=== PATIENT | male | born 1955 | race Caucasian/White ===

== ENCOUNTER 2023-07-21 10:57 | Outpatient (OUT) | payer OTHER, SELFPAY ==
--- NOTE | 2023-07-21 11:20 | XR_ITS ---
The [address] [address] Patient Name: PRINCESS OROZCO MRN: [id number] date: 1955 Sex: M Assigned Patient Location: [facility] Current Patient Location: [facility] Accession/Order Number: [id number] Exam Date: 07/21/2023 11:10 Report Date: 07/21/2023 15:44 At the request of: DINORAH MARTIN Procedure: XR ankle LT min 3V PROCEDURE: XR ankle LT min 3V DATE: 07/21/2023 10:10 AM CDT COMPARISONS: None CLINICAL INDICATION: CHRONIC PAIN OF LEFT ANKLE M 25.572 FINDINGS: There is no evidence of fractures or other osseous abnormalities. The ankle mortise is intact. There is evidence of mild tibiotalar degenerative change. There is a small spur off the posterior inferior os calcis noted on lateral view. There is spurring off the posterior os calcis at the attachment of the Achilles. There is evidence of mid foot degenerative changes. XR/XR ankle LT min 3V IMPRESSION: Left ankle radiographs show no evidence of acute abnormalities. Electronically authenticated by: ALENA WEST Date: 07/21/2023 15:44
== END 2023-07-21 10:58 | disposition home or self-care (01) ==
LOC: RAD 10:57
PROVIDERS: PCP Family Medicine; Visit Provider Family Medicine
DX: M25.572 Pain in left ankle and joints of left foot (principal); Z91.81 History of falling; Z13.31 Encounter for screening for depression
CPT/HCPCS: 73610

== ENCOUNTER 2023-08-01 08:08 | Outpatient (OUT) | payer OTHER, SELFPAY ==
--- NOTE | 2023-08-01 08:24 | MR_ITS ---
[address] [address] Patient Name: PRINCESS OROZCO MRN: [id number] date: 1955 Sex: M Assigned Patient Location: MRI Current Patient Location: MRI Accession/Order Number: [id number] Exam Date: 08/01/2023 08:50 Report Date: 08/01/2023 16:52 At the request of: DINORAH MARTIN Procedure: MR ankle LT wo con HISTORY: Pain along the lateral aspect of the left ankle for the past 2 months. No known injury. MR ankle LT wo con: 08/01/2023 8:50 AM EDT COMPARISON: Radiographs left ankle 07/21/2023. TECHNIQUE: Multiplanar, multisequence MRI images of the ankle were obtained without contrast. FINDINGS: LIGAMENTS: The anterior talofibular ligament appears within normal limits. The calcaneofibular ligament, posterior talofibular ligament, and distal tibiofibular ligaments appear within normal limits. The deltoid ligament complex appears within normal limits. The superior peroneal retinaculum appears intact. TENDONS: There appears to be mild focal thickening and intermediate signal intensity involving the inframalleolar portion of the peroneus brevis tendon compatible with mild tendinopathy. No significant tendinopathy or tear of the peroneal tendons is seen. There is no significant tenosynovitis of the peroneal tendon sheath. There is a moderate amount of fluid within the posterior tibialis tendon sheath. There is evidence of severe tendinopathy of the retromalleolar and distal portion of the posterior tibialis tendon. Superimposed on this tendinopathy is a high-grade, longitudinal intrasubstance tear of the tendon extending from the retromalleolar region to its insertion. This tear measures 5 cm in length. There is mild diffuse thickening and low signal intensity of the Achilles tendon compatible with chronic diffuse tendinopathy. There appears to be moderate diffuse thickening and low signal intensity of the distal anterior tibialis tendon. The other tendons of the ankle appear within normal limits. SINUS TARSI AND TARSAL TUNNEL: There is edema-like signal replacing the majority of the fat within the sinus tarsi. No space-occupying mass is seen in the tarsal tunnel. BONES AND JOINTS: The bone marrow signal intensity is age appropriate. There appear to be mild to moderate degenerative changes of the talonavicular joint with dorsal osteophyte formation. There is a small 2 mm subchondral cyst within the posterolateral aspect of the tibial plafond. No osteochondral defect of the talar dome is seen. There appear to be mild degenerative changes of the talofibular joint and there is subchondral cystic change and bone marrow edema within the adjacent lateral malleolus. There appear to be mild degenerative changes of the medial aspect of the posterior subtalar joint. There is a moderate amount of bone marrow edema throughout the majority of the body and neck of the talus and also within the calcaneus adjacent to the posterior subtalar joint. There appear to be mild degenerative changes of the distal tibiofibular syndesmosis with marginal osteophytes. There is a small amount of fluid within a joint recess posterior to the posterior subtalar joint. There is a small 4 mm ovoid low signal intensity filling defect within this fluid on image 9 of the sagittal proton-density fat-saturated sequence compatible with a loose body. PLANTAR FASCIA: There is a large plantar calcaneal enthesophyte. There is evidence of moderate- severe plantar fasciitis involving the proximal central band of the plantar fascia in this region. SOFT TISSUES: No significant soft tissue swelling is seen. MR/MR ankle LT wo con IMPRESSION: 1. There is evidence of mild focal tendinopathy of the inframalleolar portion of the peroneus brevis tendon, but no tear of the peroneal tendons is seen and there is no significant tenosynovitis of the peroneal tendon sheath. 2. Severe tendinopathy and superimposed high-grade longitudinal partial-thickness intrasubstance tear of the posterior tibialis tendon with a moderate tenosynovitis. 3. There are mild degenerative changes of the medial aspect of the posterior subtalar joint with reactive bone marrow edema involving the adjacent body and neck of the talus and the calcaneus. Less likely this bone marrow edema could be secondary to bone contusions or stress reactions. There are also mild-moderate degenerative changes of the talonavicular joint and the talofibular joint with subchondral cystic change and bone marrow edema within the adjacent lateral malleolus. 4. There is edema-like signal replacing the fat within the sinus tarsi which is probably secondary to underlying inflammation or synovitis and this may be a potential cause for sinus tarsi syndrome. 5. Moderate-severe plantar fasciitis with a large plantar calcaneal enthesophyte. 6. No ligament injury is seen. Electronically authenticated by: MARITO JONES Date: 08/01/2023 16:52
== END 2023-08-01 08:09 | disposition home or self-care (01) ==
PROVIDERS: PCP Family Medicine; Visit Provider Family Medicine
DX: M25.572 Pain in left ankle and joints of left foot (principal); M67.874 Other specified disorders of tendon, left ankle and foot
CPT/HCPCS: 73721

== ENCOUNTER 2023-08-06 08:42 | Outpatient (OUT) | payer OTHER, SELFPAY ==
--- NOTE | 2023-08-06 | XR_ITS ---
The [address] [address] Patient Name: PRINCESS OROZCO MRN: [id number] date: 1955 Sex: M Assigned Patient Location: [facility] Current Patient Location: Accession/Order Number: [id number] Exam Date: 08/06/2023 08:50 Report Date: 08/07/2023 07:03 At the request of: LYNN MCCALL Procedure: XR ankle LT min 3V PROCEDURE: XR ankle LT min 3V, XR foot LT min 3V HISTORY: LEFT ANKLE PAIN COMPARISON: XR ankle left 07/21/2023 FINDINGS: BONES:Joint space narrowing and periarticular osteophytes involving the first metatarsophalangeal joints and first interphalangeal joint. No fracture or dislocation. Flattening of plantar arch. Prominent calcaneal degenerative enthesopathic spurring. Smooth articular surface and uniform spacing of the ankle joint. SOFT TISSUES:No visible soft tissue swelling. EFFUSION:None visible. OTHER: Negative. XR/XR ankle LT min 3V IMPRESSION: 1. No appreciable acute abnormality. 2. Unremarkable ankle joint. 3. Degenerative changes of the foot. Electronically authenticated by: PARTHA CHAMORRO Date: 08/07/2023 07:03
--- NOTE | 2023-08-06 | XR_ITS ---
The [address] [address] Patient Name: PRINCESS OROZCO MRN: [id number] date: 1955 Sex: M Assigned Patient Location: [facility] Current Patient Location: Accession/Order Number: [id number] Exam Date: 08/06/2023 08:50 Report Date: 08/07/2023 07:03 At the request of: LYNN MCCALL Procedure: XR foot LT min 3V PROCEDURE: XR ankle LT min 3V, XR foot LT min 3V HISTORY: LEFT ANKLE PAIN COMPARISON: XR ankle left 07/21/2023 FINDINGS: BONES:Joint space narrowing and periarticular osteophytes involving the first metatarsophalangeal joints and first interphalangeal joint. No fracture or dislocation. Flattening of plantar arch. Prominent calcaneal degenerative enthesopathic spurring. Smooth articular surface and uniform spacing of the ankle joint. SOFT TISSUES:No visible soft tissue swelling. EFFUSION:None visible. OTHER: Negative. XR/XR foot LT min 3V IMPRESSION: 1. No appreciable acute abnormality. 2. Unremarkable ankle joint. 3. Degenerative changes of the foot. Electronically authenticated by: PARTHA CHAMORRO Date: 08/07/2023 07:03
== END 2023-08-06 08:43 | disposition home or self-care (01) ==
LOC: RAD 08:42
PROVIDERS: PCP Family Medicine; Visit Provider Podiatrist Foot & Ankle Surgery
DX: M25.572 Pain in left ankle and joints of left foot (principal)
CPT/HCPCS: 73610; 73630

== ENCOUNTER 2024-08-18 08:04 | Outpatient (OUT) | payer OTHER, SELFPAY ==
--- OUTSIDE RECORDS SUMMARY | 2024-08-18 08:17 | XMS_ITS | CCD ---
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 Name Role Phone JenniferNoraCarissa Unavailable CARISSA ARROYO Admitting Unavailable CARISSA ARROYO Consulting Unavailable CARISSA ARROYO Attending Unavailable MARIO, DR DINORAH Ireland Consulting Unavailable MARIO, DR DINORAH Ireland Attending Unavailable MARIO, DR DINORAH Ireland Admitting Unavailable DR DINORAH MARTIN Primary Care Unavailable SHAIKH MENA Attending Unavailable Unallocated , Noms Provider Primary Care Provi aiden Allergies Allergy Classification Reported Allergen(s) Allergy Type Date of Onset Reaction(s) Facility (1 source) Penicillin G Benzathine Drug allergy anaphylaxis [facility] Acquis[facility] Other (2 sources) Penicillins Drug Intolerance 0 Rash [facility] Medications Current Medications Medication Drug Class(es) Dates Sig (Normalized) Sig (Original) clindamycin 300 mg oral capsule (1 source) Lincosamide Antibacterial Start: 07-29-2021 take 1 capsule by mouth every eight hours Clindamycin HCl 300 MG 1 cap(s) Orally tid for 10 day(s) Jul, Active nabumetone 500 mg oral tablet (2 sources) Nonsteroidal Anti-inflammatory Drug Start: 11-12-2023 take 1 tablet by mouth twice daily as needed for pain nabumetone (Relafen) 500 MG tablet Take 500 mg by mouth 2 (two) times a day as needed for moderate pain 11/12/2023 Active Problems Active Problems Problem Classification Problem Date Documented Date Episodic/Chronic Immunizations and screening for infectious disease (2 sources) Needs influenza immunization; Translations: [Encounter for immunization] Onset: 08-03-2024 08-03-2024 Episodic Osteoarthritis (2 sources) Osteoarthritis of left hip joint; Translations: [Unilateral primary osteoarthritis, left hip] Onset: 12-18-2023 12-18-2023 Chronic Other connective tissue disease (2 sources) History of repair of hip joint; Translations: [Presence of right artificial hip joint] Onset: 12-18-2023 12-18-2023 Chronic Other ear and sense organ disorders (1 source) Otitis externa; Translations: [Other otitis externa, left ear] Chronic Other nervous system disorders (2 sources) Chronic pain; Translations: [Other chronic pain] Onset: 12-18-2023 12-18-2023 Chronic Other nutritional; endocrine; and metabolic disorders (2 sources) Body mass index 30+ - obesity; Translations: [Obesity, unspecified] Onset: 12-18-2023 12-18-2023 Chronic Other screening for suspected conditions (not mental disorders or infectious disease) (3 sources) Encounter for screening for malignant neoplasm of prostate; Translations: [Patient encounter status] Onset: 06-03-2022 08-03-2024 Episodic Other upper respiratory disease (2 sources) Seasonal allergic rhinitis; Translations: [Other seasonal allergic rhinitis] Onset: 12-18-2023 12-18-2023 Chronic Past or Other Problems Problem Classification Problem Date Documented Da te Episodic/Chronic Abdominal hernia (2 sources) Bilateral inguinal hernia; Translations: [Bilateral inguinal hernia, without obstruction or gangrene, not specified as recurrent] Onset: 12-18-2023 12-18-2023 Episodic E Codes: Natural/environment (1 source) Bitten by dog, initial encounter; Translations: [Bitten by dog, initial encounter W54.0XXA] Onset: 07-29-2021 Resolved: 07-29-2021 Episodic Open wounds of extremities (1 source) Open bite of left forearm, initial encounter; Translations: [Open bite of left forearm, initial encounter S51.852A] Onset: 07-29-2021 Resolved: 07-29-2021 Episodic Other connective tissue disease (2 sources) Tear of left rotator cuff; Translations: [Unspecified rotator cuff tear or rupture of left shoulder, not specified as traumatic] Onset: 12-18-2023 12-18-2023 Episodic Other connective tissue disease (2 sources) Tear of right rotator cuff; Translations: [Unspecified rotator cuff tear or rupture of right shoulder, not specified as traumatic] Onset: 12-18-2023 12-18-2023 Episodic Other upper respiratory infections (2 sources) Acute upper respiratory infection; Translations: [Acute upper respiratory infection, unspecified] Onset: 12-18-2023 12-18-2023 Episodic Results Test Name Value Interpretation Reference Range Facil ity CBC W MANUAL DIFFon 05-30-20 22 ATYPICAL LYMPH # Normal [facility] Comment on above: Performed By: #### C BCMAN #### [facility] [address] [place] [address] Dr. Emely Steele ATYPICAL LYMPH % Normal [facility] Comment on above: Performed By: #### C BCMAN #### [facility] [address] [place] [address] Dr. Emely Steele BAND # Normal 0.0-0.3 [facility] Comment on above: Performed By: #### C BCMAN #### [facility] [address] [place] [address] Dr. Emely Steele BAND % Normal 0-5 [facility] Comment on above: Performed By: #### C BCMAN #### [facility] [address] [place] [address] Dr. Emely Steele BASOM # 0.00 103/ul Normal 0.00-0.10 [facility] Comment on above: Performed By: #### C BCMAN #### [facility] [address] [place] [address] Dr. Emely Steele BASOM % 0.0 % Critically low 0.2-2.0 [facility] Comment on above: Performed By: #### C BCMAN #### [facility] [address] [place] [address] Dr. Emely Steele BLAST # Normal [facility] Comment on above: Performed By: #### C BCMAN #### [facility] [address] [place] [address] Dr. Emely Steele BLAST % Normal [facility] Comment on above: Performed By: #### C BCMAN #### [facility] [address] [place] [address] Dr. Emely Steele CORRECTED WBC Normal 4.0-11.0 [facility] Comment on above: Performed By: #### C BCGEOVANI #### [facility] [address] [address] [address] Emely Steele EOS # 0.18 103/ul Normal 0.00-0.70 [facility] Comment on above: Performed By: #### C BCGEOVANI #### [facility] [address] [address] [address] Emely Steele EOS% 4.0 % Normal 0.9-7.0 [facility] Comment on above: Performed By: #### C NAYELI #### [facility] [address] [address] [address] Emely Steele HCT 42.7 % Normal 42.0-54.0 [facility] Comment on above: Performed By: #### C NAYELI #### [facility] [address] [place] [address] Dr. Emely Steele HGB 14.9 g/dl Normal 14.0-18.0 [facility] Comment on above: Performed By: #### C NAYELI #### [facility] [address] [place] [address] Dr. Emely Steele LYMPHM # 0.78 103/ul Critically low 1.20-3.80 [facility] Comment on above: Performed By: #### C NAYELI #### [facility] [address] [address] [address] Emely Steele LYMPHM% 17.0 % Critically low 20.5-60.0 [facility] Comment on above: Performed By: #### C NAYELI #### [facility] [address] [place] [address] Dr. Emely Steele MCH 33.6 pg Normal 25.9-34.0 [facility] Comment on above: Performed By: #### C NAYELI #### [facility] [address] [address] [address] Emely Steele MCHC 34.9 g/dl Normal 29.9-35.2 [facility] Comment on above: Performed By: #### C NAYELI #### [facility] [address] [place] [address] Dr. Emely Steele MCV 96.2 fL Critically high 80.0-94.0 [facility] Comment on above: Performed By: #### C NAYELI #### [facility] [address] [place] [address] Dr. Emely Steele METAMYELOCYTE # Normal [facility] Comment on above: Performed By: #### C NAYELI #### [facility] [address] [place] [address] Dr. Emely Steele METAMYELOCYTE % Normal [facility] Comment on above: Performed By: #### C NAYELI #### [facility] [address] [place] [address] Dr. Emely Steele MONOM# 0.55 103/ul Normal 0.30-0.80 [facility] Comment on above: Performed By: #### C NAYELI #### [facility] [address] [place] [address] Dr. Emely Steele MONOM% 12.0 % Normal 1.7-12.0 [facility] Comment on above: Performed By: #### C NAYELI #### [facility] [address] [place] [address] Dr. Emely Steele MPV 9.3 fL Critically low 9.5-13.5 [facility] Comment on above: Performed By: #### C NAYELI #### [facility] [address] [place] [address] Dr. Emely Steele MYELOCYTE # Normal [facility] Comment on above: Performed By: #### C NAYELI #### [facility] [address] [place] [address] Dr. Emely Steele MYELOCYTE % Normal [facility] Comment on above: Performed By: #### C NAYELI #### [facility] [address] [place] [address] Dr. Emely Steele NRBC Normal [facility] Comment on above: Performed By: #### C NAYELI #### [facility] [address] [place] [address] Dr. Emely Steele PLT 128 103/ul Critically low 150-450 [facility] Comment on above: Performed By: #### C NAYELI #### [facility] [address] [address] [address] Emely Steele RBC 4.44 106/ul Critically low 4.70-6.10 [facility] Comment on above: Performed By: #### C NAYELI #### [facility] [address] [address] [address] Emely Steele RDW 12.8 % Normal 11.0-15.0 [facility] Comment on above: Performed By: #### C NAYELI #### [facility] [address] [address] [address] Emely Steele SEG # 3.08 103/ul Normal 1.40-6.50 [facility] Comment on above: Performed By: #### C NAYELI #### [facility] [address] [place] [address] Dr. Emely Steele SEG % 67.0 % Normal 43.0-75.0 [facility] Comment on above: Performed By: #### C NAYELI #### [facility] [address] [address] [address] Emely Steele WBC 4.6 103/ul Normal 4.0-11.0 [facility] Comment on above: Performed By: #### C NAYELI #### [facility] [address] [place] [address] Dr. Emely Steele GLYCOHEMOGLOBIN A1Con 2021 ADA RECOMMENDATION SEE BELOW Normal [facility] Comment on above: Result Comment: ADA RECOMMENDED LIMIT 4.0 - 6.0 ADA THERAPEUTIC TARGET < 7.0 ACTION SUGGESTED > 7.0 Performed By: #### A 1C #### [facility] [address] [place] [address] Dr. Emely Steele Glucose [Mass/Vol] 108 mg/dL Normal [facility] Comment on above: Performed By: #### A 1C #### [facility] [address] [place] [address] Dr. Emely Steele HbA1c (Bld) [Mass fraction] 5.4 % Normal 4.5-6.2 [facility] Comment on above: Performed By: #### A 1C #### [facility] [address] [address] [address] Emely Steele LIPID PROFILEon 05-30-2022 CHOL-HDL RATIO NORM SEE BELOW Normal [facility] Comment on above: Result Comment: 3.3 - 4.4 LOW RISK 4.4 - 7.1 AVERAGE RISK 7.1 - 11.0 MODERATE RISK >11.0 HIGH RISK Performed By: #### P SASCLC #### [facility] [address] [address] [address] Emely Steele Cholesterol [Mass/Vol] 154 mg/dL Normal <=200 [facility] Comment on above: Performed By: #### P SASCLC #### [facility] [address] [address] [address] Emely Steele Cholesterol in HDL [Mass/Vol] 53 mg/dL Normal 40-60 [facility] Comment on above: Performed By: #### P SASCLC #### [facility] [address] [address] [address] Emely Steele Cholesterol in LDL [Mass/Vol] 86.4 mg/dL Normal [facility] Comment on above: Performed By: #### P SASCLC #### [facility] [address] [address] [address] Emely Steele Cholesterol.total/Cho lesterol in HDL [Mass ratio] 2.9 {ratio} Normal [facility] Comment on above: Performed By: #### P SASCLC #### [facility] [address] [address] [address] Emely Steele HDL NORMAL > or = 60 mg/dl - LOW CARDIOVASCULAR RISK <40 mg/dl - HIGH CARDIOVASCULAR RISK Normal [facility] Comment on above: Performed By: #### P SASCLC #### [facility] [address] [address] [address] Emely Steele LDL CALC NORMAL SEE BELOW Normal [facility] Comment on above: Result Comment: <100 mg/dl OPTIMAL 100 - 129 mg/dl NEAR OR ABOVE OPTIMAL 130 - 159 mg/dl BORDERLINE HIGH 160 - 189 mg/dl HIGH >190 mg/dl VERY HIGH Performed By: #### P SASCLC #### [facility] [address] [place] [address] Dr. Emely Steele Triglyceride [Mass/Vol] 73 mg/dL Normal <=150 [facility] Comment on above: Performed By: #### P SASCLC #### [facility] [address] [address] [address] Emely Steele VLDL CALC 14.6 mg/dL Normal [facility] Comment on above: Performed By: #### P SASCLC #### [facility] [address] [address] [address] Emely Steele LIVER PROFILEon 05-30-2022 Albumin [Mass/Vol] 3.8 g/dL Normal 3.4-5.0 [facility] Comment on above: Performed By: #### L IPID, BMP, LIVER, TSH #### [facility] [address] [place] [address] Dr. Emely Steele Albumin/Globulin [Mass ratio] 1.1 {ratio} Normal [facility] Comment on above: Performed By: #### L IPID, BMP, LIVER, TSH #### [facility] [address] [place] [address] Dr. Emely Steele ALP [Catalytic activity/Vol] 48 U/L Normal 46-116 [facility] Comment on above: Performed By: #### L IPID, BMP, LIVER, TSH #### [facility] [address] [place] [address] Dr. Emely Steele ALT [Catalytic activity/Vol] 42 U/L Normal 16-63 [facility] Comment on above: Performed By: #### L IPID, BMP, LIVER, TSH #### [facility] [address] [place] [address] Dr. Emely Steele AST [Catalytic activity/Vol] 34 U/L Normal 15-37 [facility] Comment on above: Performed By: #### L IPID, BMP, LIVER, TSH #### [facility] [address] [address] [address] Emely Steele BILI, CONJUGATED 0.2 mg/dL Normal 0.0-0.2 [facility] Comment on above: Performed By: #### L IPID, BMP, LIVER, TSH #### [facility] [address] [place] [address] Dr. Emely Steele Bilirubin [Mass/Vol] 1.2 mg/dL Critically high 0.2-1.0 [facility] Comment on above: Performed By: #### L IPID, BMP, LIVER, TSH #### [facility] [address] [address] [address] Emely Steele Globulin (S) [Mass/Vol] 3.5 g/dL Normal [facility] Comment on above: Performed By: #### L IPID, BMP, LIVER, TSH #### [facility] [address] [place] [address] Dr. Emely Steele Protein [Mass/Vol] 7.3 g/dL Normal 6.4-8.2 [facility] Comment on above: Performed By: #### L IPID, BMP, LIVER, TSH #### [facility] [address] [place] [address] Dr. Emely Steele PROF CHEM 8 (BAS METB)on Anion gap [Moles/Vol] 9.3 mmol/L Normal [facility] Comment on above: Performed By: #### L IPID, BMP, LIVER, TSH #### [facility] [address] [place] [address] Dr. Emely Steele Calcium [Mass/Vol] 8.8 mg/dL Normal 8.5-10.1 [facility] Comment on above: Performed By: #### L IPID, BMP, LIVER, TSH #### [facility] [address] [place] [address] Dr. Emely Steele Chloride [Moles/Vol] 103 mmol/L Normal 98-107 [facility] Comment on above: Performed By: #### L IPID, BMP, LIVER, TSH #### [facility] [address] [place] [address] Dr. Emely Steele CO2 [Moles/Vol] 29.5 mmol/L Normal 21.0-32.0 [facility] Comment on above: Performed By: #### L IPID, BMP, LIVER, TSH #### [facility] [address] [address] [address] Emely Steele Creatinine [Mass/Vol] 1.08 mg/dL Normal 0.70-1.30 [facility] Comment on above: Performed By: #### L IPID, BMP, LIVER, TSH #### [facility] [address] [address] [address] Emely Steele EGFR-AF IVORIAN >60 Normal >=60 [facility] Comment on above: Performed By: #### L IPID, BMP, LIVER, TSH #### [facility] [address] [address] [address] Emely Steele EGFR-NON AF IVORIAN >60 Normal >=60 [facility] Comment on above: Performed By: #### L IPID, BMP, LIVER, TSH #### [facility] [address] [address] [address] Emely Steele Glucose [Mass/Vol] 95 mg/dL Normal 74-106 [facility] Comment on above: Performed By: #### L IPID, BMP, LIVER, TSH #### [facility] [address] [address] [address] Emely Steele Potassium [Moles/Vol] 3.8 mmol/L Normal 3.5-5.1 [facility] Comment on above: Performed By: #### L IPID, BMP, LIVER, TSH #### [facility] [address] [address] [address] Emely Steele Sodium [Moles/Vol] 138 mmol/L Normal 136-145 [facility] Comment on above: Performed By: #### L IPID, BMP, LIVER, TSH #### [facility] [address] [address] [address] Emely Steele Urea nitrogen [Mass/Vol] 23.0 mg/dL Critically high 7.0-18.0 [facility] Comment on above: Performed By: #### L IPID, BMP, LIVER, TSH #### [facility] [address] [address] [address] Emely Steele Urea nitrogen/Creatinine [Mass ratio] 21.3 mg/mg Normal [facility] Comment on above: Performed By: #### L IPID, BMP, LIVER, TSH #### [facility] [address] [address] [address] Emely Steele TSHon 05-30-2022 TSH 1.478 uIU/mL Normal 0.358-3.740 [facility] Comment on above: Performed By: #### L IPID, BMP, LIVER, TSH #### [facility] [address] [place] [address] Dr. Emely Steele INSULINon 10-04-2021 Insulin 10.9 uIU/mL Normal 2.6-24.9 [facility] Comment on above: Performed By: #### P SASCLC #### [facility] [address] [place] [address] Dr. Emely Steele PSA SCREENING LABCORPon 09-13 Prostate specific Ag [Mass/Vol] 0.8 ng/mL Normal 0.0-4.0 [facility] Comment on above: Result Comment: Rakel MARTINES methodology. . According to the [place] [employer], Serum PSA should decrease and remain at undetectable levels after radical prostatectomy. The AUA defines biochemical recurrence as an initial PSA value 0.2 ng/mL or greater followed by a subsequent confirmatory PSA value 0.2 ng/mL or greater. Values obtained with different assay methods or kits cannot be used interchangeably. Results cannot be interpreted as absolute evidence of the presence or absence of malignant disease. Performed By: #### P SASCLC #### [facility] [address] [place] [address] Dr. Emely Steele CBC AUTO DIFFon 10-03-2021 BASO # 0.0 103/ul Normal 0.0-0.1 [facility] Comment on above: Performed By: #### P SASCLC #### [facility] [address] [place] [address] Dr. Emely Steele Basophils/100 WBC (Bld) 0.4 % Normal 0.2-2.0 [facility] Comment on above: Performed By: #### P SASCLC #### [facility] [address] [place] [address] Dr. Emely Steele EO # 0.1 103/ul Normal 0.0-0.7 [facility] Comment on above: Performed By: #### P SASCLC #### [facility] [address] [place] [address] Dr. Emely Steele Eosinophils/100 WBC (Bld) 1.2 % Normal 0.9-7.0 [facility] Comment on above: Performed By: #### P SASCLC #### [facility] [address] [place] [address] Dr. Emely Steele Erythrocyte distribution width (RBC) [Ratio] 12.3 % Normal 11.0-15.0 [facility] Comment on above: Performed By: #### P SASCLC #### [facility] [address] [place] [address] Dr. Emely Steele Hematocrit (Bld) [Volume fraction] 44.7 % Normal 42.0-54.0 [facility] Comment on above: Performed By: #### P SASCLC #### [facility] [address] [place] [address] Dr. Emely Steele Hemoglobin (Bld) [Mass/Vol] 15.1 g/dL Normal 14.0-18.0 [facility] Comment on above: Performed By: #### P SASCLC #### [facility] [address] [place] [address] Dr. Emely Steele IG # 0.03 10e3/ul Normal 0.00-0.03 [facility] Comment on above: Performed By: #### P SASCLC #### [facility] [address] [place] [address] Dr. Emely Steele IG % 0.6 % Critically high 0.0-0.5 [facility] Comment on above: Performed By: #### P SASCLC #### [facility] [address] [place] [address] Dr. Emely Steele LYMPH # 1.0 103/ul Critically low 1.2-3.8 [facility] Comment on above: Performed By: #### P SASCLC #### [facility] [address] [place] [address] Dr. Emely Steele Lymphocytes/100 WBC (Bld) 20.0 % Critically low 20.5-60.0 [facility] Comment on above: Performed By: #### P SASCLC #### [facility] [address] [place] [address] Dr. Emely Steele MANUAL DIFF REQ NO Normal [facility] Comment on above: Performed By: #### P SASCLC #### [facility] [address] [place] [address] Dr. Emely Steele MCH (RBC) [Entitic mass] 33.1 pg Normal 25.9-34.0 [facility] Comment on above: Performed By: #### P SASCLC #### [facility] [address] [place] [address] Dr. Emely Steele MCHC (RBC) [Mass/Vol] 33.8 g/dL Normal 29.9-35.2 [facility] Comment on above: Performed By: #### P SASCLC #### [facility] [address] [place] [address] Dr. Emley Steele MCV (RBC) [Entitic vol] 98.0 fL Critically high 80.0-94.0 [facility] Comment on above: Performed By: #### P SASCLC #### [facility] [address] [place] [address] Dr. Emely Steele MONO # 0.6 103/ul Normal 0.3-0.8 [facility] Comment on above: Performed By: #### P SASCLC #### [facility] [address] [place] [address] Dr. Emely Steele Monocytes/100 WBC (Bld) 11.2 % Normal 1.7-12.0 [facility] Comment on above: Performed By: #### P SASCLC #### [facility] [address] [place] [address] Dr. Emely Steele NEUT # 3.3 103/ul Normal 1.4-6.5 [facility] Comment on above: Performed By: #### P SASCLC #### [facility] [address] [address] [address] Emely Steele Neutrophils/100 WBC (Bld) 66.6 % Normal 43.0-75.0 [facility] Comment on above: Performed By: #### P SASCLC #### [facility] [address] [address] [address] Emely Steele Platelet mean volume (Bld) [Entitic vol] 9.1 fL Critically low 9.5-13.5 [facility] Comment on above: Performed By: #### P SASCLC #### [facility] [address] [place] [address] Dr. Emely Steele PLT 167 103/ul Normal 150-450 [facility] Comment on above: Performed By: #### P SASCLC #### [facility] [address] [address] [address] Emely Steele RBC 4.56 106/ul Critically low 4.70-6.10 [facility] Comment on above: Performed By: #### P SASCLC #### [facility] [address] [address] [address] Emely Steele WBC 5.0 103/ul Normal 4.0-11.0 [facility] Comment on above: Performed By: #### P SASCLC #### [facility] [address] [place] [address] Dr. Emely Steele GLYCOHEMOGLOBIN A1Con 2020 ADA RECOMMENDATION ADA THERAPEUTIC TARGET 6.0 - 7.0 ACTION SUGGESTED > 7.0 Normal [facility] Comment on above: Performed By: #### A 1C #### [facility] [address] [place] [address] Dr. Emely Steele Glucose [Mass/Vol] 111 mg/dL Normal [facility] Comment on above: Performed By: #### A 1C #### [facility] [address] [place] [address] Dr. Emely Steele HbA1c (Bld) [Mass fraction] 5.5 % Normal <=6.0 [facility] Comment on above: Performed By: #### A 1C #### [facility] [address] [place], [place] [address] Dr. Emely Steele LIPID PROFILEon 10-03-2021 CHOL-HDL RATIO NORM SEE BELOW Normal [facility] Comment on above: Result Comment: 3.3 - 4.4 LOW RISK 4.4 - 7.1 AVERAGE RISK 7.1 - 11.0 MODERATE RISK >11.0 HIGH RISK Performed By: #### U NATANAEL, CMP, LIPID #### [facility] [address] [place], [place] [address] Dr. Emely Steele Cholesterol [Mass/Vol] 161 mg/dL Normal <=200 [facility] Comment on above: Performed By: #### U NATANAEL, CMP, LIPID #### [facility] [address] [place], [place] [address] Dr. Emely Steele Cholesterol in HDL [Mass/Vol] 59 mg/dL Normal [facility] Comment on above: Performed By: #### U NATANAEL, CMP, LIPID #### [facility] [address] [place], [place] [address] Dr. Emely Steele Cholesterol in LDL [Mass/Vol] 90.2 mg/dL Normal [facility] Comment on above: Performed By: #### U NATANAEL, CMP, LIPID #### [facility] [address] [place], [place] [address] Dr. Emely Steele Cholesterol.total/Cho lesterol in HDL [Mass ratio] 2.7 {ratio} Normal [facility] Comment on above: Performed By: #### U NATANAEL, CMP, LIPID #### [facility] [address] [place], [place] [address] Dr. Emely Steele HDL NORMAL > or = 60 mg/dl - LOW CARDIOVASCULAR RISK <40 mg/dl - HIGH CARDIOVASCULAR RISK Normal [facility] Comment on above: Performed By: #### U NATANAEL, CMP, LIPID #### [facility] [address] [place], [place] [address] Dr. Emely Steele LDL CALC NORMAL SEE BELOW Normal [facility] Comment on above: Result Comment: <100 mg/dl OPTIMAL 100 - 129 mg/dl NEAR OR ABOVE OPTIMAL 130 - 159 mg/dl BORDERLINE HIGH 160 - 189 mg/dl HIGH >190 mg/dl VERY HIGH Performed By: #### U NATANAEL, CMP, LIPID #### [facility] [address] [place] [address] Dr. Emely Steele Triglyceride [Mass/Vol] 59 mg/dL Normal <=150 [facility] Comment on above: Performed By: #### U NATANAEL, CMP, LIPID #### [facility] [address] [address] [address] Emely Steele VLDL CALC 11.8 mg/dL Normal [facility] Comment on above: Performed By: #### U NATANAEL, CMP, LIPID #### [facility] [address] [place] [address] Dr. Emely Steele PROF 14(COMP METB)on 021 Albumin [Mass/Vol] 4.1 g/dL Normal 3.5-5.0 [facility] Comment on above: Performed By: #### U NATANAEL, CMP, LIPID #### [facility] [address] [place] [address] Dr. Emely Steele Albumin/Globulin [Mass ratio] 1.1 {ratio} Normal [facility] Comment on above: Performed By: #### U NATANAEL, CMP, LIPID #### [facility] [address] [place] [address] Dr. Emely Steele ALP [Catalytic activity/Vol] 46 U/L Normal 38-126 [facility] Comment on above: Performed By: #### U NATANAEL, CMP, LIPID #### [facility] [address] [address] [address] Emely Steele ALT [Catalytic activity/Vol] 56 U/L Normal 21-72 [facility] Comment on above: Performed By: #### U NATANAEL, CMP, LIPID #### [facility] [address] [place] [address] Dr. Emely Steele Anion gap [Moles/Vol] 13.2 mmol/L Normal [facility] Comment on above: Performed By: #### U NATANAEL, CMP, LIPID #### [facility] [address] [address] [address] Emely Steele AST [Catalytic activity/Vol] 42 U/L Normal 17-59 [facility] Comment on above: Performed By: #### U NATANAEL, CMP, LIPID #### [facility] [address] [address] [address] Emely Steele Bilirubin [Mass/Vol] 1.2 mg/dL Normal 0.2-1.3 [facility] Comment on above: Performed By: #### U NATANAEL, CMP, LIPID #### [facility] [address] [address] [address] Emely Steele Calcium [Mass/Vol] 9.3 mg/dL Normal 8.4-10.2 [facility] Comment on above: Performed By: #### U NATANAEL, CMP, LIPID #### [facility] [address] [address] [address] Emely Steele Chloride [Moles/Vol] 102 mmol/L Normal 98-107 [facility] Comment on above: Performed By: #### U NATANAEL, CMP, LIPID #### [facility] [address] [address] [address] Emely Steele CO2 [Moles/Vol] 26.7 mmol/L Normal 22.0-30.0 [facility] Comment on above: Performed By: #### U NATANAEL, CMP, LIPID #### [facility] [address] [address] [address] Emely Steele Creatinine [Mass/Vol] 1.01 mg/dL Normal 0.66-1.25 [facility] Comment on above: Performed By: #### U NATANAEL, CMP, LIPID #### [facility] [address] [address] [address] Emely Steele EGFR-AF IVORIAN >60 Normal >=60 [facility] Comment on above: Performed By: #### U NATANAEL, CMP, LIPID #### [facility] [address] [address] [address] Emely Steele EGFR-NON AF IVORIAN >60 Normal >=60 [facility] Comment on above: Performed By: #### U NATANAEL, CMP, LIPID #### [facility] [address] [address] [address] Emely Steele Globulin (S) [Mass/Vol] 3.9 g/dL Normal [facility] Comment on above: Performed By: #### U NATANAEL, CMP, LIPID #### [facility] [address] [address] [address] Emely Steele Glucose [Mass/Vol] 84 mg/dL Normal 74-106 [facility] Comment on above: Performed By: #### U NATANAEL, CMP, LIPID #### [facility] [address] [address] [address] Emely Steele Potassium [Moles/Vol] 3.9 mmol/L Normal 3.4-5.0 [facility] Comment on above: Performed By: #### U NATANAEL, CMP, LIPID #### [facility] [address] [place] [address] Dr. Emely Steele Protein [Mass/Vol] 8.0 g/dL Normal 6.1-8.2 [facility] Comment on above: Performed By: #### U NATANAEL, CMP, LIPID #### [facility] [address] [address] [address] Emely Steele Sodium [Moles/Vol] 138 mmol/L Normal 137-145 [facility] Comment on above: Performed By: #### U NATANAEL, CMP, LIPID #### [facility] [address] [address] [address] Emely Steele Urea nitrogen [Mass/Vol] 20.0 mg/dL Normal 9.0-20.0 [facility] Comment on above: Performed By: #### U NATANAEL, CMP, LIPID #### [facility] [address] [address] [address] Emely Steele Urea nitrogen/Creatinine [Mass ratio] 19.8 mg/mg Normal [facility] Comment on above: Performed By: #### U NATANAEL, CMP, LIPID #### [facility] [address] [address] [address] Emely Steele URIC ACID SERUMon 10-03-2021 Urate [Mass/Vol] 6.3 mg/dL Normal 3.5-8.5 [facility] Comment on above: Performed By: #### U NATANAEL, CMP, LIPID #### [facility] [address] [place] [address] Dr. Emely Steele Vital Signs Date Time Vital Sign Value Performing Clinician Facility 08-03-2024 15:02-0400 Body height 182.9 cm Alejandrina Nicole PROCESSOR HELPER Work Phone: [facility] 08-03-2024 15:02-0400 Body mass index (BMI) [Ratio] 36.37 kg/m2 Alejandrina Nicole PROCESSOR HELPER Work Phone: [facility] 08-03-2024 15:02-0400 Body temperature 97.11 [degF] Alejandrina Nicole PROCESSOR HELPER Work Phone: [facility] 08-03-2024 15:02-0400 Body weight 121.66 kg Alejandrina Nicole PROCESSOR HELPER Work Phone: [facility] 08-03-2024 15:02-0400 Diastolic blood pressure 78 mm[Hg] Alejandrina Nicole PROCESSOR HELPER Work Phone: [facility] 08-03-2024 15:02-0400 Heart rate 71 /min Alejandrina Nicole PROCESSOR HELPER Work Phone: [facility] 08-03-2024 15:02-0400 Respiratory rate 16 /min Alejandrina Nicole PROCESSOR HELPER Work Phone: [facility] 08-03-2024 15:02-0400 SaO2% (BldA) [Mass fraction] 95 % Alejandrina Nicole PROCESSOR HELPER Work Phone: [facility] 08-03-2024 15:02-0400 Systolic blood pressure 122 mm[Hg] Alejandrina Nicole PROCESSOR HELPER Work Phone: [facility] 07-29-2021 11:20-0400 Body height 182.88 cm Carissa Rodriguez Other [facility] Other 07-29-2021 11:20-0400 Body mass index (BMI) [Ratio] 36.21 kg/m2 Carissa Rodriguez Other [facility] Other 07-29-2021 11:20-0400 Body temperature 98.7 [degF] Carissa Rodriguez Other [facility] Other 07-29-2021 11:20-0400 Body weight 121.11 kg Carissa Rodriguez Other [facility] Other 07-29-2021 11:20-0400 Diastolic blood pressure 88 mm[Hg] Carissa Rodriguez Other [facility] Other 07-29-2021 11:20-0400 Respiratory rate 18 /min Carissa Rodriguez Other [facility] Other 07-29-2021 11:20-0400 SaO2% (BldA) [Mass fraction] 99 % Carissa Rodriguez Other [facility] Other 07-29-2021 11:20-0400 Systolic blood pressure 132 mm[Hg] Carissa Rodriguez Other [facility] Other Encounters Encounter Date Encounter Type Care Provider Facility Start: 08-03-2024 End: 08-03-2024 Initial preventive medicine new patient 67yrs&> Alejandrina Nicole PROCESSOR HELPER Work Phone: [facility] Comment on above: Screening for colon cancer (Primary Dx); Need for influenza vaccination; Wellness examination Start: 08-03-2024 End: 08-03-2024 Bamboo flowsheet Alejandrina Nicole PROCESSOR HELPER Work Phone: [facility] Start: 08-03-2024 End: 08-03-2024 Bamboo flowsheet Alejandrina Nicole PROCESSOR HELPER Work Phone: [facility] Start: 08-03-2024 End: 08-03-2024 Patient encounter status Alejandrina Nicole PROCESSOR HELPER Work Phone: [facility] Start: 12-18-2023 End: 12-18-2023 ambulatory SHAIKH RAJESH Not Available Start: 06-03-2022 Encounter for genera l adult medical examination without abnormal findings DR DINORAH MARTIN [facility] Start: 05-30-2022 End: 05-31-[address] DINORAH MARTIN Facility:[facility] Start: 05-30-2022 End: 05-31-2022 Encounter for general adult medical examination without abnormal findings DR DINORAH MARTIN Facility:[facility] Start: 10-03-2021 End: 10-04-2021 ambulatory CARISSA ARROYO Facility:[facility] Start: 07-29-2021 Office outpatient ne w 20 minutes Carissa Rodriguez [facility] Procedures Date Procedure Procedure Detail Performing Clinician Start: 05-30-2022 PSA screening CARISSA HANSEN Comment on above: Performed By: #### P SASCLC #### [facility] [address] [place] [address] Dr. Emely Steele Start: 02-08-2013 Colonoscopy Alejandrina samayoa PROCESSOR HELPER Work Phone: Plan of Treatment Date Care Activity Detail Author Start: 11-03-2024 End: 11-03-2024 Patient encounter procedure 11/03/2024 9:30 AM EST Office Visit [facility] [address] [place] [address] Alejandrina Nicole NP [address] [place] [address] [facility] Start: 09-13-2024 Pneumococcal Vaccine : 65+ Years (1 of 1 - PCV) Pneumococcal Vaccine: 65+ Years (1 of 1 - PCV) [facility] Comment on above: Postponed from 12/16 (Other Patient Reasons) Start: 08-03-2024 End: 08-03-2024 Patient encounter procedure 08/03/2024 3:30 PM EDT Office Visit [facility] [address] [place] [address] Alejandrina Nicole NP [address] [place] [address] Arrived [facility] Comment on above: Arrived Start: 08-03-2024 End: 08-03-2025 CBC W Auto Differential panel - Blood CBC and differential Lab Routine Wellness examination Expected: 08/03/2024 (Approximate), Expires: 08/03/2025 [facility] Comment on above: Expected: 08/03/2024 (Approximate), Expires: 08/03/2025 Start: 08-03-2024 End: 08-03-2025 Comprehensive metabolic 2000 panel - Serum or Plasma Comprehensive metabolic panel Lab Routine Wellness examination Expected: 08/03/2024 (Approximate), Expires: 08/03/2025 [facility] Comment on above: Expected: 08/03/2024 (Approximate), Expires: 08/03/2025 Start: 08-03-2024 End: 08-03-2025 Hemoglobin A1c/Hemoglobin.total in Blood Hemoglobin A1c Lab Routine Wellness examination Expected: 08/03/2024 (Approximate), Expires: 08/03/2025 [facility] Comment on above: Expected: 08/03/2024 (Approximate), Expires: 08/03/2025 Start: 08-03-2024 End: 08-03-2025 Lipid 1996 panel - Serum or Plasma Lipid panel Lab Routine Wellness examination Expected: 08/03/2024 (Approximate), Expires: 08/03/2025 [facility] Comment on above: Expected: 08/03/2024 (Approximate), Expires: 08/03/2025 Start: 08-03-2024 End: 08-03-2025 Noninvasive colorectal cancer DNA and occult blood screening [Presence] in Stool Cologuard colon cancer screening Lab Routine Screening for colon cancer Expected: 08/03/2024 (Approximate), Expires: 08/03/2025 [facility] Comment on above: Expected: 08/03/2024 (Approximate), Expires: 08/03/2025 Start: 08-03-2024 End: 08-03-2025 TSH W/REFLEX TO FT4 TSH W/REFLEX TO FT4 Lab Routine Wellness examination Expected: 08/03/2024 (Approximate), Expires: 08/03/2025 [facility] Work Phone: Comment on above: Expected: 08/03/2024 (Approximate), Expires: 08/03/2025 Start: 06-13-2024 Influenza vaccination Influenza Vacc ine (#1) [facility] Start: 02-08-2023 Screening for malign ant neoplasm of colon [facility] Start: 2022 Pneumococcal Vaccine : 65+ Years (1 of 1 - PCV) Pneumococcal Vaccine: 65+ Years (1 of 1 - PCV) [facility] Start: 1955 Screening for malign ant neoplasm of colon [facility] Immunizations Immunization Date Immunization Notes Care Provider Milvia ryder 08-03-2024 Seasonal trivalent influenza vaccine, adjuvanted, preservative free Alejandrina Nicole PROCESSOR HELPER Work Phone: [facility] 08-07-2023 Influenza, High-dose Seasonal, Quadrivalent, Preservative Free Alejandrina Nicole PROCESSOR HELPER Work Phone: [facility] 08-07-2023 influenza virus vaccine, unspecified formulation Alejandrina Nicole PROCESSOR HELPER Work Phone: [facility] 09-21-2021 Influenza, injectable, Madin [place] Canine Kidney, preservative free, quadrivalent Alejandrina Nicole PROCESSOR HELPER Work Phone: [facility] 07-29-2021 tetanus toxoid, reduced diphtheria toxoid, and acellular pertussis vaccine, adsorbed Carissa Jennifer Other [facility] Other 09-14-2020 influenza, injectable, quadrivalent, contains preservative Alejandrina Nicole PROCESSOR HELPER Work Phone: [facility] 07-30-2014 influenza, seasonal, injectable Alejandrina Nicole PROCESSOR HELPER Work Phone: [facility] 07-30-2014 zoster vaccine, live Carter Nicole PROCESSOR HELPER Work Phone: [facility] Payers Date Payer Category Payer Private Health Insurance [employer] [id number] 1957 Unknown [id number] 1955 Unknown [id number] 1955 Unknown [id number] 1955 Unknown [id number] Social History Date Type Detail Facility Unknown if ever smoked [facility] Other Start: 12-18-2023 End: 08-03-2024 Sex Assigned At [facility] Other Start: 12-18-2023 Tobacco smoking status NHIS Never smoked tobacco [facility] Start: 12-18-2023 Tobacco use and exposure Smokeless tobacco non-user [facility] Start: 12-18-2023 End: 08-03-2024 Alcoholic beverage intake Current drinker of alcohol (finding) [facility] Start: 12-18-2023 End: 08-03-2024 Alcoholic beverage intake [facility] Start: 1955 Sex assigned at Not on file [facility] Start: 12-25-2022 Gender identity Identifies as male gender (finding) [facility] NEGATED: Highlighted rowStart: EDITHF History of tobacco use Passive smoker [facility] History of Present illness Narrative 08-10-2024 Alejandrina Nicole NP - 08/10/2024 12:50 PM EDTBanali Nicole NP - 08/03/2024 3:30 PM EDT Note Date & Type Note Facility 08-10-2024 History of Presen t illness Narrative Associated Problem(s): Wellness examination I have reviewed Ht/Wt/BMI, I have reviewed recommended vaccines for patient's age, as well as all recommended screenings I have reviewed available care everywhere notes as well. I have recommended eating a balanced diet, as well as activity as chronic conditions allow It is recommended that the patient have a yearly eye exam, as well as twice a year dental exams Fu in this office for wellness on a yearly basis Diet: Eat three meals per day. Breakfast, lunch, and dinner. Avoid snacking. Avoid eating after 5/6 pm. Daily protein GOAL 35% of your intake; 30g per meal. Daily calorie GOAL 1,800-2,000 per day. Consider tracking your food intake on MyFtinessPal or LoseIt Water: Increase water intake; GOAL 64-80oz of water per day. Exercise: Increase activity. GOAL 30 minutes, 5 days per week. START SLOW. Start with 5 minutes, 5 days per week. Then increase to 10 days, 5 days per week. Continue to increase until you reach the goal. Increase steps; GOAL 10,000 steps per day. Be sure to get adequate sleep; GOAL 6-8 hours of sleep per night. Images from the original note were not included. Subjective Patient ID: Nahum Felix is a 68 y.o. male who presents for Establish Care. HPI Specialists: [facility] Left hand, thumb abnormal bone growth Painful Ongoing X3 months Denies: Injury/trauma Loss of dexterity See's ortho for rotator cuff and osteoarthritis of hip; Will defer this to them as well. Diet: Mostly home cooked meals. Moderate protein, moderate vegetables. Water: 1/2 gallon per day Caffeine: 1 cup of coffee per day Exercise: Daily at work Sleep: 5 hours broken sleep. 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 Review of Systems Constitutional: Negative for activity change, appetite change, chills, diaphoresis, fatigue, fever and unexpected weight change. HENT: Negative for congestion, ear pain, rhinorrhea, sinus pressure, sinus pain, sneezing, sore throat, trouble swallowing and voice change. Eyes: Negative for visual disturbance. Respiratory: Negative for cough, chest tightness, shortness of breath and wheezing. Cardiovascular: Negative for chest pain, palpitations and leg swelling. Gastrointestinal: Negative for abdominal distention, abdominal pain, blood in stool, constipation, diarrhea and vomiting. Genitourinary: Negative for decreased urine volume, dysuria, flank pain, frequency, hematuria and urgency. Musculoskeletal: Negative for arthralgias, gait problem, joint swelling and myalgias. Skin: Negative for rash. Neurological: Negative for dizziness, tremors, syncope, weakness, light-headedness and headaches. Psychiatric/Behavioral: Negative for decreased concentration and suicidal ideas. The patient is not nervous/anxious. Hematological: Does not bruise/bleed easily. Endocrine: Negative for cold intolerance, heat intolerance, polydipsia, polyphagia and polyuria. Objective Physical Exam Assessment/Plan Problem List Items Addressed This Visit Screening for colon cancer - Primary Relevant Orders Cologuard colon cancer screening Wellness examination I have reviewed Ht/Wt/BMI, I have reviewed recommended vaccines for patient's age, as well as all recommended screenings I have reviewed available care everywhere notes as well. I have recommended eating a balanced diet, as well as activity as chronic conditions allow It is recommended that the patient have a yearly eye exam, as well as twice a year dental exams Fu in this office for wellness on a yearly basis Diet: Eat three meals per day. Breakfast, lunch, and dinner. Avoid snacking. Avoid eating after 5/6 pm. Daily protein GOAL 35% of your intake; 30g per meal. Daily calorie GOAL 1,800-2,000 per day. Consider tracking your food intake on MyFtinessPal or LoseIt Water: Increase water intake; GOAL 64-80oz of water per day. Exercise: Increase activity. GOAL 30 minutes, 5 days per week. START SLOW. Start with 5 minutes, 5 days per week. Then increase to 10 days, 5 days per week. Continue to increase until you reach the goal. Increase steps; GOAL 10,000 steps per day. Be sure to get adequate sleep; GOAL 6-8 hours of sleep per night. Relevant Orders TSH W/REFLEX TO FT4 Lipid panel Hemoglobin A1c Comprehensive metabolic panel CBC and differential Need for influenza vaccination Relevant Orders Flu vaccine, trivalent, adjuvanted, PF ([id number]) (Fluad trivalent single dose syringe) (Completed) documented in this encounter [facility] Instructions 08-03-2024 Patient Instructions Note Date & Type Note Facility 08-03-2024 Instructions Alejandrina Nicole NP - 08/03/2024 3:30 PM EDT FASTING labs ordered. Nothing to eat or drink for 12 hours prior to blood draw. Water and black coffee ok. INCREASE your cardiovascular ACTIVITY; GOAL 150 minutes per week. AVOID eating less than 2-4 hours before bedtime. AVOID all electronics for 2 hours prior to bedtime. Bed is for SLEEP ONLY. AVOID excessive alcohol intake. AVOID caffeine after 12:00pm. Go to bed when you are tired. If you are not tired that night, push the time back by 30 minutes the next night. Continue to do so until you are able to fall asleep without difficulty. If you wake up in the middle of the night, DO NOT LAY THERE FOR LONGER THAN 40 MINUTES. Once you are up, YOU ARE UP FOR THE DAY. AVOID napping. Get a Lavender diffuser in your bedroom. Magnesium Glycinate 500-1,000mg about 30-60 minutes before bedtime. Brand: Innate Melatonin 5mg-10mg about 30 minutes before bed. Brand: Any brand, but once you select one stick with it. documented in this encounter [facility] Evaluation note 07-29-2021 Note Date & Type Note Facility 07-29-2021 Evaluation note Encounter Date Diagnosis Assessment Notes Jul, Bitten by dog, initial encounter (ICD-10 - W54.0XXA) Jul, Open bite of left forearm, initial encounter (ICD-10 - S51.852A) Keep the wounds clean and dry. Shower with soap and water, apply antibiotic ointment to the wounds and the dressing daily. Tylenol Motrin for aches pains or fevers. Take the clindamycin as prescribed until gone. Follow-up with your family physician if no improvement in 2 to 3 days or for signs of infection such as drainage, increased pain, fever, chills, red streaking on your arm [facility] Other Evaluation note Note Date & Type Note Facility Evaluation note Diagnosis URTI (acute upper respiratory infection)- Primary Acute upper respiratory infections of unspecified site Screening for colon cancer- Primary Special screening for malignant neoplasms, colon Need for influenza vaccination Need for prophylactic vaccination and inoculation against influenza Wellness examination documented in this encounter [facility] History general Narrative - Reported Note Date & Type Note Facility History general Narrative - Reported Type Surgical History right hip replacement Surgical History hernia repair Surgical History sinus surgery Surgical History tonsillectomy Hospitalization History see above [facility] Other Summary Purpose Family History No Family History Records FoundNo Family History Records Found Advance Directives No Advanced Directives Records FoundNo Advanced Directives Records Found Additional Source Comments REASON FOR VISIT (unrecogniz ed section and content) Reason Comments Establish Care (unrecognized sect ion and content) No Status Records FoundNo Status Records Found INFORMATION SOURCE (unrecogn ized section and content) DATE CREATED AUTHOR 06/05/2022 [facility] DATE CREATED AUTHOR 'S ORGANIZ ATION 12/19/2023 [facility] [employer] Care Teams (unrecognized sec tion and content) [employer] Relationship Specialty Start Date End Date Unallocated, Nomradha Edwards MD [address] [place] [address] PCP - General Family Medicine 08/03/24 [employer] Relationship Specialty Start Date End Date Unallocated, Rosa Edwards, [id number] [facility] [address] PCP - General Family Medicine 08/03/24 FOR RECORDS PERTAINING TO PATIENTS WHO ARE OR HAVE BEEN ENROLLED IN A CHEMICAL DEPENDENCY/SUBSTANCEABUSE PROGRAM, SOME INFORMATION MAY BE OMITTED. This clinical summary was aggregated from multiple sources. Caution should be exercised in using it in the provision of clinical care. This summary normalizes information from multiple sources, and as a consequence, information in this document may materially change the coding, format and clinical context of patient data. In addition, data may be omitted in some cases. CLINICAL DECISIONS SHOULD BE BASED ON THE PRIMARY CLINICAL RECORDS. [facility] provides no warranty or guarantee of the accuracy or completeness of information in this document.
[2024-08-18 08:32] LABS: Basophils Percent Auto 0.2 % (0.2-2.0); Eosinophils Absolute Auto 0.1 10^3/uL (0.0-0.7); Eosinophils Percent Auto 1.3 % (0.9-7.0); Immature Granulocytes Abs Auto 0.01 10^3/uL (0.00-0.03); Immature Granulocytes Pct Auto 0.2 % (0.0-0.5); Lymphocytes Absolute Auto 0.7 10^3/uL (1.2-3.8); Lymphocytes Percent Auto 15.1 % (20.5-60.0); Mean Corpuscular HGB Conc 34.1 g/dL (29.9-35.2); Mean Corpuscular Hemoglobin 33.3 pg (25.9-34.0); Mean Corpuscular Volume 97.4 fL (80.0-94.0); Monocytes Absolute Auto 0.9 10^3/uL (0.3-0.8); Monocytes Percent Auto 19.3 % (1.7-12.0); Neutrophils Absolute Auto 3.1 10^3/uL (1.4-6.5); Neutrophils Percent Auto 63.9 % (43.0-75.0); Platelet Count 128 10^3/uL (150-450); Red Blood Count 4.21 10^6/uL (4.70-6.10); Red Cell Distribution Width 12.5 % (11.0-15.0); White Blood Count 4.8 10^3/uL (4.0-11.0)
[2024-08-18 08:49] LABS: Estimated Average Glucose 103 mg/dL; Glycohemoglobin A1C 5.2 % (4.5-6.2)
[2024-08-18 09:18] LABS: Alanine Aminotransferase 36 U/L (16-63); Albumin Globulin Ratio 1.1; Albumin Level 3.7 g/dL (3.4-5.0); Alkaline Phosphatase 52 U/L (46-116); Anion Gap 11.2; Aspartate Amino Transferase 35 U/L (15-37); BUN Creatinine Ratio 13.6; Bilirubin Total 1.2 mg/dL (0.2-1.0); Calcium 8.7 mg/dL (8.5-10.1); Carbon Dioxide 28.5 mmol/L (21.0-32.0); Chloride 102 mmol/L (98-107); Estimated GFR (African America >60 (>=60 mL/min/1.73m^2); Estimated GFR (Non-African Ame >60 (>=60 mL/min/1.73m^2); Globulin 3.5 g/dL; Glucose 91 mg/dL (74-106); Potassium 3.7 mmol/L (3.5-5.1); Sodium 138 mmol/L (136-145); Total Protein 7.2 g/dL (6.4-8.2)
[2024-08-18 09:19] LABS: Chol HDL Ratio 2.2; Cholesterol 122 mg/dL (<=200); HDL Cholesterol 55 mg/dL (40-60); TSH W/ REFLEX FT4 1.766 uIU/mL (0.358-3.740); Triglycerides 63 mg/dL (<=150); VLDL CHOLESTEROL 12.6 mg/dL
== END 2024-08-18 08:05 | disposition home or self-care (01) ==
PROVIDERS: PCP Family Medicine
DX: Z00.00 Encounter for general adult medical examination without abnormal findings (principal)
CPT/HCPCS: 36415; 80053; 80061; 83036; 84443; 85025